=== PATIENT | male | born 1940 | race African-American/Black ===

== ENCOUNTER → 2016-05-07 | Outpatient (CLI) | payer OTHER ==
[~2016-05-07] MED LIST: AMLO2.5T PO; ASPI81TA28 PO; CITA10TA8 PO; FERR-24 PO; GABA-113 PO; INSUINJ3; LISI-729 PO; LORA0.5T12; METF500T PO; PRAV20TA PO; PRT/20 PO; TOLT2CAP PO; TRAV0.00 OPB; vit b12
== END | disposition home or self-care (01) ==
LOC: C.LABSPEC 17:02
PROVIDERS: ATTEND Urology
DX: R31.9 Hematuria, unspecified (principal); R82.8 Abnormal findings on cytological and histological examination of urine

== ENCOUNTER 2019-05-09 19:43 | Inpatient (IN) ==
[2019-05-10] MEDS ORDERED: ACETAMINOPHEN 325 MG TAB PO PRN (00:41)
[2019-05-10] MEDS ORDERED: FUROSEMIDE 40 MG TAB PO ONE (00:41)
[2019-05-10] MEDS ORDERED: ONDANSETRON INJ 2 MG/ML 2 ML VIAL IV PRN (00:41)
[2019-05-10] MEDS ORDERED: POLYETHYLENE (MIRALAX) 17 GM PACK PO PRN (00:41)
[2019-05-10] MEDS ORDERED: PHARMACY GLYCEMIC MGMT CONSULT PRN (00:47)
--- NOTE | 2019-05-10 00:55 | History & Physical Report ---
Date of Service May 10, 2019 Assessment & Plan (1) Syncope and collapse: Mr. Yousif Carter is a 78 year old man with complicated past medical history who presents after a syncopal episode at home Syncope Differential is broad including vasovagal, cardiac, neurologic, or medication induced Patient was just finishing going to bathroom and standing up and is on multiple blood pressure medications, we will check orthostatic vital signs Confused state afterwards with nonsensical speech and word slurring, could be reflective of a seizure, patient also with history of stroke, will order neurology consult, MRI brain, EEG and continue to monitor Patient with history of Atrial fibrillation, no known history of any other arrhythmias, will continue to watch on monitor in tele, will get echocardiogram in AM to further assess cardiac function will also trend troponin. Patient is asymptomatic currently will monitor closely and repeat ECG with any chest or shoulder pain Stroke like symptoms Word slurring and nonsensical speech never lasting more than a few minutes, possibly TIA's patient with a fib not anticoagulated and with history of poorly controlled diabetes, and with history of previous CVA is certainly at high risk CT head negative CTA showing moderate stenosis of right carotid Will get MRI now to evaluate further for any acute stroke Patient also with possible metastatic disease, want to rule out brain metastasis or seizures Will get neurology consult and order EEG as well Will continue atorvastatin and plavix, Will add asa 81 at this time which he has taken in past and stopped taking regularly Mediastinal Lymphadenopathy Patient with evidence of mediastinal lymphadenopathy suggestive of metastatic disease on CTA, Patient has not been to oncologist in many years and is not receiving active treatment. Port in place capable of receiving fluid but can't draw from it. It has been left in all this time because he is thought to be high risk for surgery to remove it. 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 Will get CT chest and Recommend getting records from [place] and [facility] to compare and clarify current disease status Poorly Controlled DMII Pharmacy consulted for glycemic management Average sugar 200's-300's holding metformin and trulicity Ambulatory Dysfunction Will get PT/OT evaluation Case management consulted for possible concern over returning home Glaucoma with Ischemic retinopathy Will let patient continue to use his home eye medications No acute changes, will follow up with opthalmologist on discharge CAD status post multiple AK's with RCA stents Will continue plavix, metoprolol, atorvastatin ASA 81, lisinopril and metoprolol Code Status: DNR/DNI F/E/N: Hearth healthy DMII diet, watched first few bites without DVT PPx: Lovenox Dispo: Admitted to telemetry for further evalutation with MRI, EEG, and neurology consult (2) Slurred speech: (3) Diabetes mellitus: (4) Glaucoma: (5) 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: (6) Squamous cell carcinoma: (7) Mediastinal lymphadenopathy: (8) Coronary artery disease: (9) Cerebrovascular disease: (10) Ambulatory dysfunction: History of Present Illness Chief Complaint: Syncopal Episode, confusion, slurred speech Primary Care Provider: Paulo Galeana Yousif Carter is a 78 year old gentleman with a past medical history significant for 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 He presents today as a direct transfer from [facility] due to a syncopal episode that occurred at home. He went to the bathroom and when standing up got immediately light headed felt like his vision was narrowing, he became diaphoretic and nauseated and then lost consciousness and almost fell to floor. He does not recall the incident very well but his daughter was present and His daughter caught him before he fell but she feels he did completely lose consciousness. When he awoke shortly thereafter he was very confused and had slurred speech and trouble making any sense. He was stood back up and brought to [facility]. At [facility] he had returned to his baseline other than some left shoulder pain which had been present for the last several days. He did not have any new deficits that family could tell, he always have some degree of lower extremity weakness, ambulatory dysfunction and neuropathy left worse than right. They believe some of that is due to his spinal stenosis, some to his diabetes, and some to his previous stroke. In the ED he was speaking to a doctor when he began to acutely slur his words and not make sense again, this lasted several minutes then he returned completely back to his baseline. This cycled several times over their time in the ED and patient was urgently taken for CT head and CTA. CT head showed no acute infarct and no bleeding, CTA showing moderate stenosis of right coronary artery and extensive soft tissue in lower neck and mediastinum concerning for metastatic disease. Patient had normal vitals, labwork significant for mild anemia with hemoglobin of about 12, Liver function normal, renal function normal and a negative troponin. Patient was transferred to [facility] for further evaluation with MRI and neurology consultation. At time of my meeting he is awake alert and oriented to person place time and situation. He is in his usual state of health and says his strength and speech are at his baseline. He has not had an episode of slurred speech since arriving. His three daughter's are present at bedside and agree with his assessment. He was able to walk from the stretcher into the bed without much difficulty but with some dragging of left foot. Review of systems negative for current chest/shoulder pain, presyncope/lightheadedness, leg swelling, fever, chills, abomdinal pain, nausea vomiting, cough, shortness of breath, lower extremity wounds, or acute vision changes. He has all of his medications in a bag at bedside, of note he is not taking any anticoagulation for his atrial fibrillation and he is not taking any daily aspirin therapy. Allergies Allergy/AdvReac Type Severity Reaction Status Date / Time No Known Allergies Allergy Unknown Verified 05/21/05 08:49 Home Medications Home Medications Medication Instructions Recorded Confirmed Type ASPIRIN (ASPIRIN EC) 1 tab PO qd #0 04/30/12 History Amlodipine (Norvasc) 2.5 mg PO DAILY #0 tab 04/30/12 History CITALOPRAM HYDROBROMIDE (CELEXA) 10 mg PO DAILY #0 tab 04/30/12 History FERROUS SULFATE (FE TABS) 325 mg PO DAILY #0 tab 04/30/12 History Gabapentin (Neurontin) 300 mg PO TID #0 cap 04/30/12 History INSULIN ISOPHANE (HUMAN) (HUMULIN #0 04/30/12 History N U-100 PEN) LORAZEPAM PRN #0 04/30/12 History Lisinopril (Prinivil) 5 mg PO QD@08 #0 tab 04/30/12 History METFORMIN HCL (GLUCOPHAGE) 500 mg PO DAILY #0 tab 04/30/12 History Pantoprazole (Protonix) 20 mg PO DAILY #30 tab 04/30/12 History Pravastatin (Pravachol ) 40 mg PO QD #0 tab 04/30/12 History TOLTERODINE TARTRATE (DETROL LA) 2 mg PO DAILY #0 cap 04/30/12 History vit b12 1xmonth #0 04/30/12 History TRAVOPROST (TRAVATAN Z) 1 drp OPB QD@08 #0 06/04/12 History Vyzulta 1 drp OPHTHALMIC (EYE) DAILY 05/10/19 History brimonidine 1 drp OPHTHALMIC (EYE) BID 05/10/19 05/10/19 History dorzolamide-timolol 1 drp OPHTHALMIC (EYE) BID 05/10/19 05/10/19 History netarsudil [Rhopressa] 1 drp OPHTHALMIC (EYE) DAILY 05/10/19 05/10/19 History Past Med/Surg History Social History Preferred Language: Turkish Orthopaedic Physician Assistant Required: No Beliefs That Will Affect Care: None Current Living Situation: Family Current Living Situation Comment: pt sister lives with him Feels Safe at Home: Yes Safety Concerns: Feels Safe At This Time Smoking Status: Never smoker Hx Alcohol Use: Yes Hx Substance Use: No Review of Systems Constitutional: no fever, no chills and no fatigue Eyes: No acute changes, though vision has been worsening for some time Ear, Nose, Mouth, Throat: no problem reported Respiratory: no cough, no dyspnea and no problem reported Cardiovascular: + lightheadedness (With syncope) and + syncope; no chest pain and no palpitations Gastrointestinal: no abdominal pain, no nausea, no vomiting and no constipation Genitourinary: no dysuria Musculoskeletal: Shoulder Pain Integumentary: no new lesions Neurologic: + falls, + localized weakness (Bilateral lower extremity left worse than right), + loss of sensation, + paresthesia, + syncope, + abnormal speech and + confusion Physical Exam Constitutional: well developed and well nourished; no acute distress and no altered mental status Port in place right upper chest Eyes: Pupils equal round and reactive to light, red injected sclera of left eye, ENMT: external ear and nose normal, oropharynx normal Neck: trachea midline, no thyromegaly Respiratory: normal respiratory effort, lungs clear to auscultation Cardiovascular: Rate/Rhythm: regular rate; + abnormal rhythm Heart Sounds: normal S1 and normal S2; no murmur and no cardiac rub Irregularly irregular rhythm, though patient was in sinus earlier Gastrointestinal (Abdomen): normal bowel sounds, soft, nontender, no hepatosplenomegaly Skin: no rashes, warm and dry Neurologic: CN II-XII assessed and normal, patient with symmetric lower extremity weakness, distal right foot inability to dorsiflex and plantar flex which patient tells me is a chronic issue. Sensation to light touch equal bilaterally Lymphatic: Lymphedema left arm Results & Data Vital Signs (Past 12 Hours) Vital Signs Temp Pulse Resp BP Pulse Ox 05/09/19 22:53 36.7 C 89 18 122/80 96 Supervising Physician Co-Signing Physician Notes Patient seen and examined, chart reviewed, case discussed with Dr. Calzada and I agree with his assessment and plan as documented above. Briefly, patient is a 78yo AA male with history of CAD/CVA/DM/AF/Neuropathy, also with Hairy Cell Leukemia, remote history of head/neck SCC. Patient had a syncopal event at home after using the toilet followed by confusion and slurred speech. He was seen at [facility], had CT head which was negative for bleed, CTA head and neck with moderate stenosis of right carotid artery, extensive soft tissue in lower neck concerning for malignancy. Patient had episodes of slurred speech at [facility]. He was transferred to [facility] at request of family for MRI and Neuro consultation. On exam he is afebrile, HD stable, NAD, resting comfortably in bed Skin - no rash HEENT- NC/AT, PERRL, EOMI, MMM, Neck supple Heart - +S1/S2, irregularly irregular, no m/r/g, port present in right chest wall, non-tender to palpation Lungs - CTA Abd - +BS, soft, NT/ND Ext- warm, well perfused, lymphedema of LUE Neuro - AA&O, speech intact, no facial droop, MS intact Labs and images reviewed. Outside records reviewed Assessment/Plan: 78yo AA male with syncopal event followed by confusion and slurred speech. ?Orthostatic event followed by hypotension/poor perfusion/TIA? ?Seizure? -Admit to medical floor with telemetry -MRI brain with and without contrast to look for CVA, ?metastatic disease. Patient has spinal stimulator in place - MRI is checking for compatability -Neuro checks -2D echo -Neurology consultation appreciated -Continue ASA, Plavix, Lipitor -Hold antihypertensive agents for now to allow for permissive HTN (Amlodipine, Lisinopril, Metoprolol) -Insulin for glycemic management -PT/OT/Speech evaluation appreciated -Consider EEG, will defer order to Neuro -Obtain records from outside facility re: thoracic mass. Patient had a CT Chest done in [place] on 12/07/18 and saw Pulmonary on 12/13/18. He does not currenlty follow with Oncology and receives most of his care at the [facility] -Remainder of plan as above Resident Activity Tracking Resident Involvement: Resident Care Provided Care Provided: Adult Hospital Medicine
[2019-05-10 01:19] LABS: Basophils # (auto) 0.03 K/uL (0-0.2); Basophils % (auto) 0.6 %; Eosinophils # (auto) 0.14 K/uL (0-0.5); Eosinophils % (auto) 2.6 %; Hematocrit (blood only) 37.5 % (42-52); Hemoglobin 12.6 g/dL (14.0-18.0); Immature Granulocytes # (auto) 0.01 K/uL (0.00-0.02); Immature Granulocytes % (auto) 0.2 %; Lymphocytes # (auto) 2.17 K/uL (1.2-3.4); Lymphocytes % (auto) 40.3 %; Mean Corpuscular Hemoglobin 28.6 pg (25-34); Mean Corpuscular Hgb Conc 33.6 g/dL (32-36); Mean Platelet Volume 10.5 fL (7.4-10.4); Monocytes % (auto) 7.4 %; Neutrophils # (auto) 2.63 K/uL (1.4-6.5); Neutrophils % (auto) 48.9 %; Platelet Count 164 K/uL (130-400); RDW Coefficient of Variation 15.6 % (11.5-14.5); RDW Standard Deviation 48.8 fL (36.4-46.3); Red Blood Count 4.41 M/uL (4.7-6.1); White Blood Count 5.38 K/uL (4.8-10.8)
[2019-05-10 01:38] LABS: Alanine Aminotransferase 13 U/L (12-78); Albumin Level 3.3 gm/dl (3.4-5.0); Aspartate Aminotransferase 9 U/L (15-37); BUN Creatinine Ratio 24.3 (10-20); Blood Urea Nitrogen 20 mg/dl (7-18); Calcium 8.8 mg/dl (8.5-10.1); Carbon Dioxide 27 mmol/L (21-32); Chloride 105 mmol/L (98-107); Creatinine Clr Calc Pharmacy 72.1 ml/min; Est GFR (African American) 98.4; Est GFR (Non-African American) 84.9; Glucose 114 mg/dl (70-99); Magnesium 1.7 mg/dl (1.8-2.4); Potassium 3.9 mmol/L (3.5-5.1); Sodium 139 mmol/L (136-145)
[2019-05-10 01:48] LABS: Albumin Globulin Ratio 0.9 (0.9-2); Alkaline Phosphatase 44 U/L (45-117); Bilirubin,Total 0.3 mg/dl (0.2-1); Globulin 3.9 gm/dl (2.5-4.0); Total Protein 7.2 gm/dl (6.4-8.2); Troponin I < 0.015 ng/ml (0-0.045)
[2019-05-10] MEDS ORDERED: GLUCAGON FOR INJ 1 MG VIAL SQ PRN (03:30)
[2019-05-10] MEDS ORDERED: CARBOHYDRATES FOR HYPOGLYCEMIA PO PRN (03:30)
[2019-05-10] MEDS ORDERED: DEXTROSE 50% 50 ML SYRINGE IV PRN (03:30)
[2019-05-10] MEDS ORDERED: GLUCOSE 10 TABS/TUBE PO PRN (03:30)
[2019-05-10] MEDS ORDERED: GLUCOSE 40% GEL 15 GM TUBE PO PRN (03:30)
--- NOTE | 2019-05-10 05:00 | Billing Data ---
Date of Service May 10, 2019 Coding Level of Care Code 25441 Initial Inpt Care Lvl 3
[2019-05-10] MEDS ORDERED: lisinopriL 10 MG TAB PO SCH (08:00)
--- NOTE | 2019-05-10 08:22 | CT Scan Report ---
CT chest wo con CLINICAL HISTORY: 78 years-old Male presenting with Concern for metastatic disease, history of head a nd neck cancer. TECHNIQUE: Multidetector CT imaging of the chest was performed without the use of intravenous contras t. IV contrast: None. One or more dose lowering techniques were used consistent with the principles o f ALARA (as low as reasonably achievable), including automatic exposure control, mA or kV adjustment to individual patient size, and/or use of iterative reconstruction. COMPARISON: PET/CT from 06/01/2012. CT DOSE (mGy.cm): The estimated cumulative dose is 408.38 mGy.cm. FINDINGS: Concrete Buildings As[employer]er topogram: Unremarkable. Soft tissues: Postsurgical changes of prior left neck dissection. Right internal jugular Mediport ter minates in the brachiocephalic confluence. Mild diffuse body wall edema. Hyperdensities in the left s upraclavicular fossa may represent calcification potentially as a response to radiation or surgery. T he appearance is not suggestive of retained surgical material. Enlargement of the right thyroid lobe with an exophytic nodule along the right lateral aspect of the esophagus. Mild infiltration of the morris perior mediastinal fat. Numerous prominent mediastinal lymph nodes measuring up to 10 mm in short axi s in the pretracheal/right paratracheal region. Evaluation of the zachary limited in the absence of intr avenous contrast. Atherosclerosis of the aorta. Normal heart size. Coronary artery and aortic valve c alcification. Moderate simple appearing right pleural effusion. Cholecystectomy clips. Excreted contr ast in the urinary collecting systems from recent CTA. Lungs and airways: No pneumothorax. Central airways patent. Pulmonary arteries are not significantly enlarged relative to adjacent bronchi. No interlobular septal thickening. Groundglass nodule in the l eft apex measuring approximately 13 mm (series 5 image 115). Adjacent cystic or emphysematous change noted. Pleural parenchymal scarring at the apices bilaterally, possibly post radiation change. Passiv e atelectasis in the right lower lobe with dependent peribronchovascular groundglass and nodular opac ities. Solid subpleural 4 mm nodule in the superior segment of the left lower lobe, unchanged. Musculoskeletal: Degenerative changes of the spine. Flowing anterior osteophytosis may suggest diffus e idiopathic skeletal hyperostosis. Anterior cervical fusion hardware. No destructive osseous lesion. Offset of the left sternoclavicular joint with posterior displacement of the left clavicular head. T his is likely chronic. There is also offset of the sternomanubrial joint. Chronic appearing anterior left rib fractures. Partially visualized spinal catheter or lead terminating in the mid thoracic kristopher on. IMPRESSION: 1. Nonspecific prominent mediastinal lymph nodes measuring up to 10 mm in short axis. Attention on f ollow-up. 2. Allowing for noncontrast technique, no convincing evidence of intrathoracic metastatic disease. 3. Moderate right pleural effusion, grossly simple appearing. Pleural fluid sampling could be consid ered to ensure the absence of pleural metastatic disease. 4. Associated right basilar passive atelectasis. Peribronchovascular groundglass and nodular depende nt right lower lobe infiltrate may relate to atelectasis or superimposed aspiration. Metastatic disea se considered unlikely. 5. Postsurgical changes of left neck dissection and postradiation change. 6. 13 mm groundglass nodule at the left apex. This requires follow-up as this may represent an adeno matous lesion (atypical adenomatous hyperplasia to adenocarcinoma in situ spectrum). ACT 112: Negative or not required by law. Electronically signed by: Feliciano Coats M.D. 05/10/2019 8:21 AM
[2019-05-10] MEDS: INSULIN ASPART 100 UNITS/ML 3 ML PEN SC SCH ×4 (08:30→21:40)
[2019-05-10] MEDS: ASPIRIN 81 MG ECTAB PO SCH (08:31)
[2019-05-10] MEDS: GABAPENTIN 600 MG TAB PO SCH ×3 (08:31→21:40)
[2019-05-10] MEDS: ATORVASTATIN 40 MG TAB PO SCH (08:31)
[2019-05-10] MEDS: POTASSIUM CHLORIDE 20 MEQ TABCR PO SCH (08:32)
[2019-05-10] MEDS: PANTOprazole 40 MG TAB PO SCH (08:32)
[2019-05-10 08:35] LABS: Estimated Average Glucose 140 mg/dl; Hemoglobin A1C 6.5 % (4.5-5.6)
[2019-05-10] MEDS ORDERED: METOPROLOL SUCC 25MG EXT REL TAB PO SCH (09:00)
[2019-05-10] MEDS ORDERED: AMLODIPINE BESYLATE 5 MG TAB PO SCH (09:00)
[2019-05-10] MEDS ORDERED: CLOPIDOGREL BISULFATE 75 MG TAB PO SCH (09:00)
[2019-05-10] MEDS ORDERED: ENOXAPARIN INJ 40 MG/0.4 ML SYR SQ SCH (09:00)
--- NOTE | 2019-05-10 12:13 | Medical Student Progress Note ---
Date of Service May 10, 2019 Assessment & Plan Treatment Plan Mr. Carter is a 78-year-old man with a complex medical history including DMII, diabetic neuropathy, atrial fibrillation not on anticoagulation, multiple MIs with stents, SCC head and neck cancer s/p radical lymph node dissection, ischemic stroke, and ischemic retinopathy who presents following an episode of loss of consciousness. Syncope and slurred speech: Possible etiologies include a stroke/TIA, syncopal episode, or seizure activity. CT scan ruled out an acute bleed at the outside hospital and a CTA was performed that showed moderate stenosis of the right carotid artery. Has multiple risk factors for CVA including atrial fibrillation, DMII, and hypertension, and demonstrated aphasia following the incident, the patient states that he lost vision in both eyes at the time of the incident which would be inconsistent with the traditional presentation of amaurosis fugax or a stroke. Was standing up and just finished urinating when the episode occurred. He was confused after the incident and states his daughter noticed his limbs jerking during the attack. Likely vasovagal syncopal event. Will get MRI head in order to rule out stroke or mass as cause of seizure. - MRI head pending. - No arrhythmia on the monitor. - Avoid aggressive blood pressure control. Mediastinal Lymphadenopathy: Raises concern for recurrence of head and neck can cer. Per family, nodule in left apex has been followed by outside provider and thus does not merit further work-up. r/o malignant origin. - Consult pulmonology for pleurocentesis. - Consult heme/onc for possible cancer recurrence. Diabetes: Blood glucose is trending down today. - Pharmacy will continue to manage insulin. Hypertension and CAD in the Setting of multiple MIs: Blood pressure was slightly high overnight (140s/80s). Permissive hypertension in the setting of possible CVA. - Continue clopidogrel, atorvastatin, and aspirin. - Hold metoprolol and lisinopril. Atrial Fibrillation: Patient has not been taking medications to manage this condition for unclear reasons. Telemetry showed sinus rhythm with heart rate in the 70s overnight and sinus bradycardia this morning with heart rate in the 40s and thus was not in a-fib at this time. Unmanaged atrial fibrillation is a risk factor for clot formation and possible stroke. - Encourage patient to follow up with PCP/Cardiology as an outpatient. Dispo: Floor Code Status: Full Code DVT ppx: Lovenox 40mg, SQ, daily Diet: Heart Healthy, Diabetic diet Supervising Attestation Medical Student Supervision Note: I independently interviewed and examined the patient and verified the corrales history and physical, reviewed labs and image studies, discussed the case with Marcela Rockwell and the resident Dr. Pizano and agree with the findings and care plan. Subjective Mr. Carter did well overnight. His speech is back to baseline per his report. He states that he had some minor difficulties moving his extremities yesterday after his syncopal episode but that has resolved. He stated that when he got up to walk with the physical therapist this morning he felt lightheaded when he stood up and a 'little woozy' when taking his first steps but was able to ambulate well after that. The patient's primary concern at this point is the increasing pain in his left upper arm. He states that he has had lymphedema in this arm for many years and it is 'always sore' but for the past three days the pain has been increased in intensity and burning in nature. He reports taking ibuprofen for this pain yesterday but that the pain was not alleviated. Review of Systems Review of Systems: All systems reviewed & are unremarkable except as noted in HPI & below Constitutional: no fever, no sweats and no malaise Eyes: + worsening vision; no diplopia Patient notes some progressive visual changes over the past few months due to cataracts. Ear, Nose, Mouth, Throat: no problem reported Respiratory: no cough and no dyspnea Cardiovascular: + lightheadedness; no chest pain, no syncope, no edema and no calf pain Gastrointestinal: no problem reported Genitourinary: no problem reported Musculoskeletal: as per Subjective / HPI Integumentary: no problem reported Neurologic: + paresthesia (lower extremities, worse at night, due to diabetic neuropathy ) and + confusion; no unsteadiness, no abnormal movements, no syncope and no abnormal speech Psychiatric: no problem reported Endocrine: no problem reported Hematologic / Lymphatic: + lymphadenopathy Allergy / Immunological: no problem reported Physical Exam Physical Exam: General Appearance: Patient is resting comfortably in bed on exam. He is friendly, cooperative, and in no acute distress. HEENT: Eyes react and accommodate appropriately to light. Sclera of left eye is notably erythematous. Ears, nose, and throat not examined. Respiratory: Lungs clear bilaterally to auscultation. No increased work of breathing, dyspnea, rhonchi, or wheezes. Cardiovascular: Normal rate and rhythm. S1 and S2 appreciated. No rubs, murmurs, or gallops. No lower extremity edema appreciated. Gastrointestinal: Normoactive bowel sounds. No tenderness to palpation or organomegaly. MSK: Diffuse muscle atrophy appreciated. Skin: Warm, pink, and dry. Neurological: 4/5 strength in all extremities. Sensation grossly intact. CN II- XII intact. No dysmetria or dysdiadochokinesia. No aphasia or dysarthria appreciated. Psychiatric: Oriented to person, place, and time. Thought process logical and organized. Affect appropriate. Genitourinary: Not examined. Lymphatic: Lymphedema in left upper extremity appreciated. No cervical, submandibular, auricular, or supraclavicular lymphadenopathy appreciated on exam. Results & Data ([facility]) Vital Signs (Past 12 Hours) Vital Signs Temp Pulse Pulse Resp BP Pulse Ox 05/10/19 11:06 36.3 C L 63 20 98/46 L 98 05/10/19 08:00 92 H 05/10/19 07:42 37.2 C 50 L 20 147/78 H 97 05/10/19 02:37 36.5 C 73 16 144/61 H 98 BUN 20 Glucose 116 Mg 1.[address] Chest: Mediastinal lymph nodes, no intrathoracic metastases, R pleural effusion, and a nodule with a groundglass appearance in the left apex.
--- NOTE | 2019-05-10 13:19 | Neurology Consultation ---
Date of Consultation May 10, 2019 Assessment & Plan (1) Diabetes mellitus: (2) Syncope and collapse: Yousif Carter is a 78 yo man w/ PMH of hairy cell leukemia, lumbar stenosis with neurogenic claudication s/p spinal stimulator placement by Dr Esquivel at [facility] in 2014, uncontrolled diabetes with neuropathy, BPH, BPPV, HLD, HTN, GERD, h/o TIA, CAD s/p stent in 2004, baseline gait abnormality, history of radical dissection of left-sided neck cancer, known small vessel ischemic disease and known mediastinal lymphadenopathy (f/w [facility] pulmonology) who presents to [facility] as a transfer from [facility] for evaluation of syncopal event followed by confusion and dysarthria. # Syncopal event: he has a long history of lightheadedness likely 2/2 orthostasis vs autonomic dysfunction 2/2 diabetes. 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 They were not sure if he has had tilt table testing in the past. - orthostatic vitals (currently hypotensive) - would recommend tilt table testing if not already completed (can see if [facility] has records of this) - would consider 30 day event monitor or zio patch on discharge to determine if arrhythmia is contributing to symptoms and refer to cardiology as needed - discussed with pt and his daughter trying compression stockings for the orthostatic component that he described ([facility] # Recurrent dysarthria/confusion: unclear if this was 2/2 hypoperfusion from arrhythmia or hypoglycemia. Dysarthria with LLE weakness and no other neurological symptoms is difficult to localize to a single neurological lesion and likely represents global hypoperfusion - would continue to monitor him for arrhythmia as above and maintain MAP > 65 - would also consider sending B12 and UA to r/o infection Thank you for this interesting consult. Plan of care discussed with primary team. Please call or text with questions. (3) Slurred speech: (4) Mediastinal lymphadenopathy: (5) Ambulatory dysfunction: History of Present Illness Attending Physician: Dilma Vyas MD History of Present Illness Yousif Carter is a 78 yo man w/ PMH of hairy cell leukemia, lumbar stenosis with neurogenic claudication s/p spinal stimulator placement by Dr Esquivel at [facility] in 2014, uncontrolled diabetes with neuropathy, BPH, BPPV, HLD, HTN, GERD, h/o TIA, CAD s/p stent in 2004, baseline gait abnormality, history of radical dissection of left-sided neck cancer, known small vessel ischemic disease and known mediastinal lymphadenopathy (f/w [facility] pulmonology) who presents to [facility] as a transfer from [facility] for evaluation of syncopal event followed by confusion and dysarthria. He was in his normal state of health until May 09, 2019 he was in the bathroom and stood up upon which he immediately got lightheaded. He had tunnel vision, diaphoresis and nausea followed by a syncopal event where his daughter caught him. There was loss of consciousness briefly when he woke up confused with slurred speech. He was taken to [facility] where he had return to baseline other than some chronic left shoulder pain. While the ED doc was talking with him, he began to have dysarthria again and nonsensical speech for several minutes before returning back to his baseline. He had a CT head that showed no hemorrhage. CTA head and neck showed moderate stenosis of the right ICA but no other reported LVO, high grade stenosis or aneurysm noted. Independent review of MRI brain from 05/10/2019 shows no acute infarct, extensive small vessel ischemic disease, thin corpus callosum and generalized atrophy with no enhancing lesions noted; there is no mesial temporal sclerosis noted either. Labs notable for WBC 5.3, hemoglobin 12.6 (normocytic anemia), platelets 164, creatinine 0.83 otherwise unremarkable BMP, A1c 6.5, calcium within normal, mag mildly low at 1.7, LFTs unremarkable, troponin negative, TSH within normal. On examination today, he reports that he is back to baseline and that he has baseline gait dysfunction, chronic lightheadedness on standing and intermittent episodes of vertigo. His usual episodes of lightheadedness when her when he goes from sitting to standing and are associated with tunnel vision and clammy hands. The episode that occurred yesterday involved tunnel vision, diaphoresis, nausea and left sided chest pain that radiated down his left arm. Daughter reports that he appeared confused when she found him in the bathroom and she caught him before he fell to the ground. There was a brief period of tonic stiffening of bi lateral upper extremities when his eyes looked glazed over. She took his vitals when they got out to the living room which were notable for blood glucose 88, HR in the 170s; she did not remember the BP at that time. He continued to have eyes open and be confused until EMS arrived. While at the outside ED, she reports that he had recurrent episodes of transient dysarthria. He remembers this and reports that he knew what he wanted to say but could not get the words out. Believes that he also felt LLE weakness during these events but denied any facial droop, vision changes, other weakness or numbness/tingling during speech difficulties. Denies any recent illnesses, fevers, chills, medication changes or injury. Uses a walker at baseline given multiple back surgeries, right foot drop, severe neuropathy up to mid-thighs and prior neck issues. Thinks that he may have had tilt table testing through neurology at [facility] but is not sure (no results available). Reviewed outside records from [facility]. Patient last saw pulmonology for his known mediastinal lymphadenopathy in January 2019. At that time CT of the chest was stable to prior with a repeat CT chest planned for November 2019. He also had a known left lung nodule who was either benign or very slowly growing as it was stable on repeat CT chest. Last note in outpatient says that his history of throat cancer was stable and the plan to continue conservative management. Findings on the CT chest at that time showed a stable 3 mm left lower lobe nodule unchanged since 2012 likely benign, by apical scarring, right IJ port catheter tip in the superior vena cava, stable position of spinal neurostimulator, mild enlargement right paratracheal lymph nodes unchanged from December 2017 CT scan, aortic atherosclerosis, coronary artery calcification, small hiatal hernia, similar right exophytic thyroid nodule measuring 1.6 x 1.5 cm, postsurgical changes in the left neck soft tissues, partially visualized anterior cervical fusion hardware, cervical thoracic laminectomies, chronic sternal fracture deformity, degenerative changes of the spine. He was admitted to [facility] in June 2018 with similar dizziness and ligh theadedness. He was seen by neurology at that time who compared imaging and felt that his ongoing chronic dizziness was likely secondary to possible BPPV. He was referred to the outpatient balance center for additional work-up but it appears that he did not actually go to this work-up since then. Per the neurology note at that time, he described a several year history of vertigo that was triggered by changes in head position lasting only seconds for which he would take medication at home with relief. He also had a longstanding history of dizziness described as lightheadedness. He was noted to have significant small vessel disease on MRI brain and recommended to start aspirin 81 mg daily, atorvastatin 80 mg daily and monitoring blood pressure with goal less than 130/80. Allergies Allergy/AdvReac Type Severity Reaction Status Date / Time No Known Allergies Allergy Unknown Verified 05/21/05 08:49 Home Medications Home Medications Medication Instructions Recorded Confirmed Type ASPIRIN (ASPIRIN EC) 1 tab PO qd #0 04/30/12 History Amlodipine (Norvasc) 2.5 mg PO DAILY #0 tab 04/30/12 History CITALOPRAM HYDROBROMIDE (CELEXA) 10 mg PO DAILY #0 tab 04/30/12 History FERROUS SULFATE (FE TABS) 325 mg PO DAILY #0 tab 04/30/12 History Gabapentin (Neurontin) 300 mg PO TID #0 cap 04/30/12 History INSULIN ISOPHANE (HUMAN) (HUMULIN #0 04/30/12 History N U-100 PEN) LORAZEPAM PRN #0 04/30/12 History Lisinopril (Prinivil) 5 mg PO QD@08 #0 tab 04/30/12 History METFORMIN HCL (GLUCOPHAGE) 500 mg PO DAILY #0 tab 04/30/12 History Pantoprazole (Protonix) 20 mg PO DAILY #30 tab 04/30/12 History Pravastatin (Pravachol ) 40 mg PO QD #0 tab 04/30/12 History TOLTERODINE TARTRATE (DETROL LA) 2 mg PO DAILY #0 cap 04/30/12 History vit b12 1xmonth #0 04/30/12 History TRAVOPROST (TRAVATAN Z) 1 drp OPB QD@08 #0 06/04/12 History Vyzulta 1 drp OPHTHALMIC (EYE) DAILY 05/10/19 History brimonidine 1 drp OPHTHALMIC (EYE) BID 05/10/19 05/10/19 History dorzolamide-timolol 1 drp OPHTHALMIC (EYE) BID 05/10/19 05/10/19 History netarsudil [Rhopressa] 1 drp OPHTHALMIC (EYE) DAILY 05/10/19 05/10/19 History Patient History Social History Preferred Language: Nauruan Communication Ability: Effective Freight Manager Required: No Beliefs That Will Affect Care: None Current Living Situation: Family Current Living Situation Comment: pt sister lives with him Feels Safe at Home: Yes Safety Concerns: Feels Safe At This Time Smoking Status: Never smoker Hx Alcohol Use: Yes Hx Substance Use: No Review of Systems Review of Systems: 14 point review of systems completed and negative except as in HPI. Physical Exam Physical Exam: General Exam: GEN: NAD, sitting in bed. HEENT: No conjunctival injection, no rhinorrhea. CV: Bradycardic, no peripheral edema PULM: Nonlabored respirations on room air. Neuro Exam: MS: Awake and Alert. Oriented to person, place, and month/year but not date. Speech fluent and appropriate without dysarthria or paraphasic errors. Language intact including naming, comprehension, repetition. Cognition and memory grossly intact. Attention intact. No neglect. CN: Visual wilson full in the right eye, appears to have diminished vision overall in the left eye. No extinction to double simultaneous stimuli. Unable to visualize fundi on fundoscopic exam. PERRLA OU. EOMI without nystagmus. Facial sensation intact to LT. Facial muscles full and symmetric. Hearing intact to conversation. Uvula midline with symmetric palatal elevation. Shoulder shrug normal. Tongue midline. MOTOR: Normal bulk and tone. No pronator drift. BUE strength 5/5 at deltoids, biceps, triceps, wrist flexors and extensors, and hand grasp bilaterally. BLE strength 5/5 at iliopsoas, hamstrings, quadriceps, 2/5 R tibialis anterior, 4-/5 L tibialis anterior and 5-/5 gastrocnemius bilaterally. REFLEXES: 1+ at biceps, triceps, brachioradialis, absent patella and absent Achilles bilaterally. Toes mute bilaterally. SENSORY: Intact to LT without extinction to double simultaneous stimuli. Vibration and temperature intact in BUEs, diminished up to knees in BLEs. COORDINATION: No dysmetria or ataxia on [id number] bilaterally. Normal Gillian bilaterally. GAIT: Deferred Results & Data Vital Signs (Past 12 Hours) Vital Signs Temp Pulse Pulse Resp BP Pulse Ox 05/10/19 11:06 36.3 C L 63 20 98/46 L 98 05/10/19 08:00 92 H 05/10/19 07:42 37.2 C 50 L 20 147/78 H 97 05/10/19 02:37 36.5 C 73 16 144/61 H 98 PG Care Time/CCT Total # of Minutes Spent Total Time Spent with Patient: Total time spent is greater than 50% in coordination of care (as documented) at patient's floor/unit and/or counseling patient: Coding Level of Care Code 97629 Initial Inpt Care Lvl 3 Diagnoses Diabetes mellitus E11.9 Syncope and collapse R55 Slurred speech R47.81 Mediastinal lymphadenopathy R59.0 Ambulatory dysfunction R26.2
[2019-05-10] MEDS ORDERED: GADOBUTROL 30ML VIAL IV PRN (13:24)
--- NOTE | 2019-05-10 13:34 | Magnetic Resonance Report ---
MR brain seizure wo/w con CLINICAL HISTORY: seizure stroke COMPARISON STUDY: CT brain same date TECHNIQUE: Utilizing a 1.5 Yamile magnet and dedicated coil, multiplanar, multiecho imaging of the br ain was performed pre and postcontrast administration. IV administration of 8.5 mL of Gadavist contr ast was uneventful. Thin cut coronal T2 imaging was performed according to seizure protocol. FINDINGS: Diffusion images show no evidence for an acute ischemic process. There are findings of multiple foci of increased signal within the periventricular deep white matter regions. These are also seen in the pontine medullary region and are consistent with extensive chroni c small vessel change. The ventricular system is midline. There are findings of generalized atrophy involving the cerebellar as well as cerebral hemispheres. Postcontrast images show no evidence for enhancing lesion. IMPRESSION: 1. Extensive cerebellar as well as cerebral atrophy. 2. Extensive chronic small vessel change in the periventricular, deep white matter regions, as well a s pontine medullary region. 3. No evidence for abnormal postcontrast enhancement. 4. No evidence for an acute ischemic process. IMPRESSION: Normal study. ACT 112: Negative or not required by law. The above report was generated using voice recognition software. It may contain grammatical, syntax or spelling errors. Electronically signed by: Keo Boone M.D. 05/10/2019 1:32 PM
--- NOTE | 2019-05-10 14:11 | XCELERA ---
[id number] \\[email or web address]\[email or web address]\[id number]
--- NOTE | 2019-05-10 14:57 | Pharmacy Report ---
Glycemic Control Consultation - Date of Service May 10, 2019 - Scope Scope: Glycemic Pharmacist consulted for glycemic control and to write orders per [facility] inpatient glycemic control protocol. - Objective Weight: 81 kg Accluis albertoecks BSG (last 24hrs): 05/10/19 05/10/19 05/10/19 00:28 00:59 07:20 Glucose 114 H POC Glucose 124 H 116 H 05/10/19 11:38 Glucose POC Glucose 142 H Laboratory Data (last 24hrs): 05/10/19 00:59 Potassium 3.9 Carbon Dioxide 27 Anion Gap 6.0 Creatinine 0.83 Est Cr Clr Drug Dosing 72.1 HbA1c: Hemoglobin A1c 6.5 % (4.5-5.6) H 05/10/19 07:57 - Recent Pertinent Medications Outpatient Anti-diabetic Regimen: * Per patient's daughter: * Metformin 500 mg daily * Lantus 35 units SC qAM * Trulicity weekly on Mondays * A1c = 6.5 % (05/10/19) - Assessment & Plan Assessment & Plan: ASSESSMENT: * Patient admitted on evening of 05/08 following syncopal episode at home * BSGs so far ranging 114-142 mg/dL * Will order one-time Lantus today (weight-based stress of 2 full dose of 28 units) - approximately 20% reduction in home Lantus dose PLAN FOR INPATIENT GLYCEMIC CONTROL: * Holding outpatient oral diabetes medications * Basal insulin * Lantus 28 units x 1 - will reassess in AM * Bolus insulin * NovoLog per scale ACHS or Q6hrs while NPO * Goal Range: Low 110 mg/dL - High 140 mg/dL * Correction Factor: 35 mg/dL/unit * Nutritional / Prandial insulin per carb ratio of 1 unit per 12 grams CHO consumed * Will order one overnight check to ensure safety * Please note that the plan above was derived based on current level of insulin resistance and hospital stress. These recommendations are appropriate for inpatient admission only. Plan of care upon discharge will need to be reassessed to avoid potential outpatient hypo/hyperglycemia. Thank you.
[2019-05-10] MEDS ORDERED: INSULIN GLARGINE SOLOSTAR 100 UNITS/ML 3 ML PEN SC ONE (15:00)
[2019-05-10] MEDS ORDERED: OR MISCELLANEOUS MED XX ONE (15:46)
--- NOTE | 2019-05-10 17:18 | Pulmonary Consultation ---
Date of Consultation May 10, 2019 Assessment & Plan (1) Pleural effusion, right: Patient with evidence of a right-sided pleural effusion. Will obtain records from [facility] and review prior CT of his chest to evaluate for evidence of effusion at that time. He does have grade 3 diastolic dysfunction which is possibly contributing to the effusion. He does have a history of malignancy and a lung nodule in his left upper lobe with some associated mediastinal lymphadenopathy. It appears that he is followed by pulmonary medicine in [facility]. We would certainly be happy to see him as well if need be. Ideally, I would recommend that the patient be off Plavix for 5 days prior to any pleural procedure that is not an emergent procedure. I do not think this effusion represents an empyema or infection. Recommend holding Plavix for 5 days and repeating chest x-ray at that time. We can see him in the clinic. (2) Diastolic heart failure: (3) Coronary artery disease: (4) Lung nodule: History of Present Illness Reason for Consultation: Pleural effusion Requesting Physician: Dr. Vyas Attending Physician: Dilma Vyas MD History of Present Illness 78-year-old -Swedish male with a past medical history of hairy cell leukemia, lumbar stenosis, diabetes with neuropathy, BPH, hyperlipidemia, hypertension, GERD, coronary artery disease with stenting 2004, radical dissection of the left neck for head and neck cancer and mediastinal lymphadenopathy and follows with [facility] pulmonology presents to the hospital from [facility] for evaluation of syncope. Pulmonary is consulted for evaluation of a right-sided pleural effusion. Patient describes he had a syncopal event where his daughter caught him in his house on Friday. There was concern for stroke and so a CTA of the head and neck was ordered with no evidence of acute process. MRI of the brain did not show any acute infarct but did show extensive small vessel ischemic disease. He denies any significant shortness of breath or chest pain. He does have occasional left shoulder pain. He did have some nausea yesterday but this has resolved. He notes a chronic cough particularly in the morning. He has chronic known mediastinal lymphadenopathy that is followed by pulmonary in [facility]. Patient apparently had a CT of his chest in January 2019 at [facility] and has a history of a left lung nodule. I am unable to review the records myself today as I do not have access to this. Allergies Allergy/AdvReac Type Severity Reaction Status Date / Time No Known Allergies Allergy Unknown Verified 05/21/05 08:49 Home Medications Home Medications Medication Instructions Recorded Confirmed Type ASPIRIN (ASPIRIN EC) 1 tab PO qd #0 04/30/12 History Amlodipine (Norvasc) 2.5 mg PO DAILY #0 tab 04/30/12 History CITALOPRAM HYDROBROMIDE (CELEXA) 10 mg PO DAILY #0 tab 04/30/12 History FERROUS SULFATE (FE TABS) 325 mg PO DAILY #0 tab 04/30/12 History Gabapentin (Neurontin) 300 mg PO TID #0 cap 04/30/12 History INSULIN ISOPHANE (HUMAN) (HUMULIN #0 04/30/12 History N U-100 PEN) LORAZEPAM PRN #0 04/30/12 History Lisinopril (Prinivil) 5 mg PO QD@08 #0 tab 04/30/12 History METFORMIN HCL (GLUCOPHAGE) 500 mg PO DAILY #0 tab 04/30/12 History Pantoprazole (Protonix) 20 mg PO DAILY #30 tab 04/30/12 History Pravastatin (Pravachol ) 40 mg PO QD #0 tab 04/30/12 History TOLTERODINE TARTRATE (DETROL LA) 2 mg PO DAILY #0 cap 04/30/12 History vit b12 1xmonth #0 04/30/12 History TRAVOPROST (TRAVATAN Z) 1 drp OPB QD@08 #0 06/04/12 History Vyzulta 1 drp OPHTHALMIC (EYE) DAILY 05/10/19 History brimonidine 1 drp OPHTHALMIC (EYE) BID 05/10/19 05/10/19 History dorzolamide-timolol 1 drp OPHTHALMIC (EYE) BID 05/10/19 05/10/19 History netarsudil [Rhopressa] 1 drp OPHTHALMIC (EYE) DAILY 05/10/19 05/10/19 History Patient History Social History Preferred Language: East Timorese Communication Ability: Effective Line Mover Required: No Beliefs That Will Affect Care: None Current Living Situation: Family Current Living Situation Comment: pt sister lives with him Feels Safe at Home: Yes Safety Concerns: Feels Safe At This Time Smoking Status: Never smoker Hx Alcohol Use: Yes Hx Substance Use: No Review of Systems Review of Systems: All systems reviewed & are unremarkable except as noted in HPI & below Physical Exam Constitutional: WD/WN, vitals as above well developed Patient is sitting up in a chair in no apparent distress. He is eating food. He appears in good spirits. Eyes: PERRL, conjunctivae normal, anicteric sclerae ENMT: external ear and nose normal, oropharynx normal Neck: Large scar on the left neck from prior surgery Respiratory: normal respiratory effort, lungs clear to auscultation Cardiovascular: RRR, no murmur, no edema Gastrointestinal (Abdomen): normal bowel sounds, soft, nontender, no hepatosplenomegaly Musculoskeletal: no cyanosis or clubbing, extremities motor strength 5/5 Skin: no rashes, warm and dry Neurologic: PERRL, EOMI, accommodation nl, no face palsy, no dysarthria Psychiatric: A+Ox3, euthymic affect Results & Data ([facility]) Vital Signs (Past 12 Hours) Vital Signs Temp Pulse Pulse Resp BP Pulse Ox 05/10/19 15:16 98.1 F 52 L 19 166/79 H 98 05/10/19 11:06 97.3 F L 63 20 98/46 L 98 05/10/19 08:00 92 H 05/10/19 07:42 99.0 F 50 L 20 147/78 H 97 I personally reviewed the patient's CT scan of his chest which demonstrates prominent mediastinal lymphadenopathy up to 10 mm in short axis. There is evidence of a small to moderate right sized pleural effusion. There is also a 13 mm groundglass nodule at the left apex. Echocardiogram performed on 05/10/2019 demonstrates grade 3 diastolic dysfunction consistent with markedly increased left atrial pressure. Normal EF with 55 to 60% PG Care Time/CCT Total # of Minutes Spent Total Time Spent with Patient: Total time spent is greater than 50% in coordination of care (as documented) at patient's floor/unit and/or counseling patient: Coding Level of Care Code 90434 Initial Inpt Care Lvl 3 Diagnoses Pleural effusion, right J90 Diastolic heart failure I50.30 Coronary artery disease I25.10 Lung nodule R91.1
[2019-05-10 19:20] LABS: Appearance Urine Turbid (Clear); Bacteria Urine Automated Negative (Negative); Bilirubin Urine Negative (Negative); Blood Urine 1+ (Negative); Color Urine Yellow; Epithelial Cell Urine Auto >30 /lpf (0-5); Glucose Urine UA Negative (Negative); Ketones Urine Negative (Negative); Leukocyte Esterase Urine 3+ (Negative); Nitrite Urine Negative (Negative); Protein Urine Negative (Negative); RBC Urine Automated 0-4 /hpf (0-4); Specific Gravity Urine 1.021 (1.000-1.030); Urobilinogen Urine Negative (Negative); WBC Urine Automated >30 /hpf (0-5); pH Urine 5.5 (4.5-7.5)
[2019-05-10] MEDS: POM - DORZOLAMIDE/TIMOLOL 22.3/6.8MG/ML 10 ML BTL OP SCH (21:39)
[2019-05-10] MEDS: BRIMONIDINE TARTRATE 0.2% OP SCH (21:39)
[2019-05-11] MEDS ORDERED: INSULIN ASPART 100 UNITS/ML 3 ML PEN SC SCH (02:00)
[2019-05-11] MEDS: HEPARIN 100 UNIT/ML 5ML FLUSH FLUSH PRN ×2 (07:43→12:24)
[2019-05-11] MEDS: GABAPENTIN 600 MG TAB PO SCH (08:57)
[2019-05-11] MEDS: PANTOprazole 40 MG TAB PO SCH (08:58)
[2019-05-11] MEDS: ASPIRIN 81 MG ECTAB PO SCH (08:58)
[2019-05-11] MEDS: BRIMONIDINE TARTRATE 0.2% OP SCH (08:58)
[2019-05-11] MEDS: POM - DORZOLAMIDE/TIMOLOL 22.3/6.8MG/ML 10 ML BTL OP SCH (08:58)
[2019-05-11] MEDS: ATORVASTATIN 40 MG TAB PO SCH (08:58)
[2019-05-11] MEDS: POTASSIUM CHLORIDE 20 MEQ TABCR PO SCH (08:58)
[2019-05-11] MEDS: INSULIN ASPART 100 UNITS/ML 3 ML PEN SC SCH ×2 (09:00→12:24)
[2019-05-11] MEDS ORDERED: VYZULTA OP SCH (09:00)
[2019-05-11] MEDS ORDERED: RHOPRESSA OP SCH (09:00)
[2019-05-11] MEDS ORDERED: CLOPIDOGREL BISULFATE 75 MG TAB PO SCH (09:00)
--- NOTE | 2019-05-11 10:44 | Pharmacy Report ---
Pharmacy Glycemic Short Note 2 - Date of Service May 11, 2019 - Glycemic Short BSG Results (Last 24 hours): 05/10/19 05/10/19 05/10/19 11:38 16:20 19:50 POC Glucose 142 H 164 H 97 05/11/19 05/11/19 02:13 08:03 POC Glucose 99 91 ASSESSMENT: 05/10: * Patient received total of 41 units of insulin yesterday, of which 28 were basal insulin * Fasting BSG on lower end of range at 91 mg/dL - will scale back on Lantus dosing. Patient received Lantus yesterday afternoon, plan to slowly move dose to AM time for ease in discharge transition (similar to time patient takes at home) - will dose again with lunch today * Continue same CF/CR PLAN FOR INPATIENT GLYCEMIC CONTROL: * Hold outpatient oral diabetes medications * Basal insulin * Lantus 22 units with lunch; adjust to AM time 05/11 * Bolus insulin * NovoLog per scale ACHS or Q6hrs while NPO * Goal Range: Low 110 mg/dL - High 140 mg/dL * Correction Factor: 35 mg/dL/unit * Nutritional / Prandial insulin per carb ratio of 1 unit per 12 grams CHO consumed PLAN FOR DISCHARGE: * A1c = 6.5% - indicates excellent glycemic control outpatient * Would recommend continuation of outpatient medications as long as patient not reporting any low BSGs at home
--- NOTE | 2019-05-11 11:43 | Medical Student Progress Note ---
Date of Service May 11, 2019 Assessment & Plan Treatment Plan Mr. 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 Vasovagal syncope: - CT scan ruled out an acute bleed at outside hospital. - He was standing up after finishing urinating when the episode occurred; therefore, likely vasovagal syncope. - Neuro feels this was likely a vasovagal or orthostatic event. Recommended UA and B12 to rule out other causes of confusion. UA showed increased WBC and leuk esterase; however, patient does not endorse dysuria, urgency, or frequency. B12 was within normal limits. - MRI was negative for mass or ischemic changes. - No further work-up or treatment required at this time. Mediastinal Lymphadenopathy: - Raises concern for recurrence of head and neck cancer. Per family, nodule in left apex has been followed by outside provider and thus does not merit further work-up. - Patient was seen by pulmonology on 05/09. Recommended holding clopidogrel for 5 days and repeating CXR and pleurocentesis as an outpatient to rule out malignancy. - Per patient's daughter, patient is following with a digital performance analyst at [facility]. Internal medicine team received contact info with this physician - will share records. - Dr. Whiting of heme/onc also saw the patient this morning (05/10) and he will follow with this patient in clinic. - Follow-up with pulmonology and heme/onc as an outpatient. Diabetes: - Blood glucose is consistently within range. - Continue home DMII meds as an outpatient. Grade III Diastolic Dysfunction: - Echo showed normal LV function, EF: 55%-60%, severe concentric LV hypertrophy, grade III diastolic dysfunction, increased left atrial pressure, cannot exclude aortic stenosis. - Unclear if this represents a new finding as we do not have any records to which to compare this. - Share records with patient's nurse extern; defer decision for f/u to them. Hypertension and CAD in the Setting of multiple MIs: - Blood pressure has been slightly high over the course of his hospital stay (140s/70s). He had two episodes of higher SBP (176, 166). - We were holding metoprolol, lisinopril, and amlodipine for permissive hypertension in the setting of possible CVA. - Given neuro consult, there is low concern for an ischemic event. - Patient has only been slightly hypertensive over the course of his stay even without his anti-hypertensives. - Given echo findings, there is concern for worsening CHF with amlodipine. - Continue clopidogrel, atorvastatin, and aspirin. - Restart metoprolol and lisinopril. - Discontinue amlodipine. Atrial Fibrillation: - Patient has not been taking medications to manage this condition for unclear reasons. - Regular rate and rhythm on exam today as well as on EKG yesterday; therefore, patient is not in a-fib at this time. - Unmanaged atrial fibrillation is a risk factor for clot formation and possible stroke. - Encourage patient to follow up with PCP/Cardiology as an outpatient. Dispo: D/C to home Code Status: DNR/DNI DVT Prophylaxis: Lovenox 40mg, SQ, daily Diet: Heart Healthy, Diabetic diet Subjective Mr. Carter did well overnight. He has been eating and ambulating well. He was able to move his bowels last night and has been urinating well. He does not endorse any additional episodes of dizziness, lightheadedness, weakness, or slurred speech. He also does not endorse any shortness of breath or chest pain. Review of Systems Review of Systems: All systems reviewed & are unremarkable except as noted in HPI & below Constitutional: no fatigue, no malaise, no weakness, no anorexia and no insomnia Eyes: + worsening vision (over the past few months; relates that he has cataracts and is being followed by ophthalmology); no diplopia Ear, Nose, Mouth, Throat: no problem reported Respiratory: no cough, no dyspnea and no pain on inspiration Cardiovascular: no chest pain, no dyspnea and no edema Gastrointestinal: no abdominal pain, no nausea, no vomiting, no cramping, no change in stools, no constipation and no diarrhea/loose stools Genitourinary: no problem reported Musculoskeletal: no muscle weakness Integumentary: no rash and no lesions Neurologic: no gait abnormality, no unsteadiness, no generalized weakness, no headache(s), no abnormal speech, no confusion and no memory loss Psychiatric: no problem reported Endocrine: no problem reported Hematologic / Lymphatic: no problem reported Allergy / Immunological: no problem reported Physical Exam Physical Exam: General Appearance: Patient is well-appearing and resting comfortably on exam. He is cooperative and in no acute distress. HEENT: Not examined. Neck: Not examined. Respiratory: Lungs clear bilaterally to auscultation. No rhonchi or wheezes. No increased work of breathing. Cardiovascular: Regular rate and rhythm. S1 and S2 appreciated. No rubs, murmurs, or gallops. No lower extremity edema appreciated. Gastrointestinal: Abdomen non-tender to palpation. No organomegaly. Normoactive bowel sounds. MSK: Normal range of motion. Skin: Not examined. Neurological: Alert and oriented x4. Motor and sensory function grossly intact. Psychiatric: Thought pattern logical and organized. Affect appropriate. Genitourinary: Not examined. Lymphatic: Not examined. Results & Data ([facility]) Vital Signs (Past 12 Hours) Vital Signs Temp Pulse Resp BP Pulse Ox 05/11/19 07:23 36.7 C 70 18 142/75 H 97 Laboratory Results Blood Glucose (Last 12 h): 91-97 Vitamin B12: 428 Urine Leukocyte Esterase: 3+ Urine WBC: >30 Diagnostic Findings Echo: Normal LV function, EF: 55%-60%, severe concentric LV hypertrophy, grade III diastolic dysfunction, increased left atrial pressure, cannot exclude aortic stenosis. ECG Additional Comments: Sinus rhythm with 1st degree A-V block; no significant changes when compared to ECG from May 2005
--- NOTE | 2019-05-11 11:46 | Discharge Summary ---
Date of Service May 11, 2019 Admission HPI Per Admitting Provider Yousif Carter is a 78 year old gentleman with a past medical history significant for 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 He presents today as a direct transfer from [facility] due to a syncopal episode that occurred at home. He went to the bathroom and when standing up got immediately light headed felt like his vision was narrowing, he became diaphoretic and nauseated and then lost consciousness and almost fell to floor. He does not recall the incident very well but his daughter was present and His daughter caught him before he fell but she feels he did completely lose consciousness. When he awoke shortly thereafter he was very confused and had slurred speech and trouble making any sense. He was stood back up and brought to [facility]. At [facility] he had returned to his baseline other than some left shoulder pain which had been present for the last several days. He did not have any new deficits that family could tell, he always have some degree of lower extremity weakness, ambulatory dysfunction and neuropathy left worse than right. They believe some of that is due to his spinal stenosis, some to his diabetes, and some to his previous stroke. In the ED he was speaking to a doctor when he began to acutely slur his words and not make sense again, this lasted several minutes then he returned completely back to his baseline. This cycled several times over their time in the ED and patient was urgently taken for CT head and CTA. CT head showed no acute infarct and no bleeding, CTA showing moderate stenosis of right coronary artery and extensive soft tissue in lower neck and mediastinum concerning for metastatic disease. Patient had normal vitals, labwork significant for mild anemia with hemoglobin of about 12, Liver function normal, renal function normal and a negative troponin. Patient was transferred to [facility] for further evaluation with MRI and neurology consultation. At time of my meeting he is awake alert and oriented to person place time and situation. He is in his usual state of health and says his strength and speech are at his baseline. He has not had an episode of slurred speech since arriving. His three daughter's are present at bedside and agree with his assessment. He was able to walk from the stretcher into the bed without much difficulty but with some dragging of left foot. Review of systems negative for current chest/shoulder pain, presyncope/lightheadedness, leg swelling, fever, chills, abomdinal pain, nausea vomiting, cough, shortness of breath, lower extremity wounds, or acute vision changes. He has all of his medications in a bag at bedside, of note he is not taking any anticoagulation for his atrial fibrillation and he is not taking any daily aspirin therapy. Admission Exam Per Admitting Provider Constitutional: well developed and well nourished; no acute distress and no altered mental status Port in place right upper chest Eyes: Pupils equal round and reactive to light, red injected sclera of left eye, ENMT: external ear and nose normal, oropharynx normal Neck: trachea midline, no thyromegaly Respiratory: normal respiratory effort, lungs clear to auscultation Cardiovascular: Rate/Rhythm: regular rate; + abnormal rhythm Heart Sounds: normal S1 and normal S2; no murmur and no cardiac rub Irregularly irregular rhythm, though patient was in sinus earlier Gastrointestinal (Abdomen): normal bowel sounds, soft, nontender, no hepatosplenomegaly Skin: no rashes, warm and dry Neurologic: CN II-XII assessed and normal, patient with symmetric lower extremity weakness, distal right foot inability to dorsiflex and plantar flex which patient tells me is a chronic issue. Sensation to light touch equal bilaterally Lymphatic: Lymphedema left arm Principal Diagnosis Syncope Discharge Exam Constitutional WD/WN, vitals as above cooperative Eyes + anicteric sclerae ENMT external ear and nose normal, oropharynx normal Neck normal visual inspection and trachea midline Respiratory normal respiratory effort, lungs clear to auscultation Cardiovascular Rate/Rhythm: regular rate and regular rhythm Heart Sounds: normal S1, normal S2 and + murmur (systolic ejection ) Extremities: no pedal edema + additional heart sounds Chest (Breasts) Additional Comments: + R sided chemo port in place Gastrointestinal (Abdomen) normal bowel sounds, soft, nontender, no hepatosplenomegaly Skin no rashes, warm and dry Neurologic CN's II-XI intact bilaterally and moves all extremities; no focal motor deficits Speech / Cognition: normal speech Motor/Sensory: no tremor and no pronator drift Psychiatric A+Ox3, euthymic affect Discharge Data Allergies Allergy/AdvReac Type Severity Reaction Status Date / Time No Known Allergies Allergy Unknown Verified 05/21/05 08:49 Consultations 05/10/19 00:41 Consult Neurology Routine 05/10/19 02:19 Consult Case Management - Discharge Planning Routine 05/10/19 14:03 Consult Pulmonology Routine 05/10/19 14:05 Consult Oncology Routine Ordered Studies 05/10/19 02:17 MR brain seizure wo/w con Routine 05/10/19 08:00 CT chest wo con Routine Hospital Course (1) Syncope and collapse: Mr. Carter is a medically complicated 78 yo gentleman who was a transfer to our facility from [facility] after a witnessed syncopal episode and subsequent episodes of slurred speech. Syncopal episode/Slurred Speech Patient had a syncopal episode after using the bathroom in his home, witnessed by his daughter. She called an ambulance which took him to [facility], where he had Head CT and CTA. The head CT was negative for acute bleed or stroke, but the CTA did show moderate stenosis of right carotid artery. Mr. Carter described a prodrome of lightheadedness, a sensation that his legs gave way, and reports a period of confusion following the syncope. Daughter provided history of upper extremity shaking for a short period of time after the syncope, although no bladder incontinence. By the time he arrived to our facility his symptoms resolved. Brain MRI at our facility showed no evidence of acute ischemic stoke or metastatic lesions. Patient's blood pressure typically ran 140s/70s, although at one point in the hospital he was hypotensive at 98/46. Orthostatic vitals we re obtained and negative. Neurology was consulted and felt the syncopal episode was consistent with hypotension vs. vasovagal vs. autonomic dysfunction (given his longstanding history of diabetes). Neurology recommended checking a vitamin B12, which was normal, as well as a UA, which was + for leuk esterase. Urine culture was obtained, pending at the time of discharge. No EEG was obtained. In the event blood pressure was the culprit, we have asked Mr. Carter to temporarily hold his home amlodipine 2.5mg daily. At the time of discharge, BP was 142/75. Outpatient items to do: Consider tilt table testing and 30 day becca monitoring for possible arrhythmia Mediastinal Lymphadenopathy / Pleural Effusion/ Left Lung Nodule Chest CT scan on admission showed enlarged mediastinal nodes, a moderate, right sided pleural effusion, and a left apical lung nodule measuring 13 mm. These findings were of concern given Mr. Carter's history of malignancy (SCC of head and neck and hairy cell leukemia). Pulmonology was consulted and recommended a thoracentesis, 5 days after holding plavix. Because Mr. Carter was taking plavix up to his admission, this non-emergent test was deferred to outpatient setting. Hospital care managers contacted Mr. Carter's typically thread marker, Dr. Mondragon at [facility] Pulmonology with records from this visit. It was recommend he have a repeat Chest CT for surveillance of his mediastinal LAD. Dr. Mondragon has followed the left lung nodule over the past several years, and he has told Mr. Carter "it is stable." Outpatient items to do: Patient needs referral to [facility] Pulmonology for thoracentesis and repeat Chest CT Chronic Diastolic Heart Failure A echocardiogram obtained during this hospital stay showed normal LV systolic function with an EF 55-60%, with severe concentric LVH and Grade III diastolic dysfunction. Mr. Carter has history of heart disease, for which he follows with Dr. Cruz at [facility]. Hospital care managers send a copy his echo to Dr. Cruz's office for review. Of note, patient was on metoprolol, lisinopril and amlodipine when admitted to the hospital. We recommended he d/c the amlodipine given his relative hypotension while in the hospital and syncopal episode. Outpatient items to do: consider need for restarting amlodipine History of SCC of Head and Neck s/p radial R lymph node dissection and Hairy Cell Leukemia Per family, patient has been in remission since 2005, and has not seen an oncologist since. Previously, he followed with Dr. Romo at [facility]. The above findings are concerning for possible malignant transformation. Oncology was consulted while he was in the hospital, and recommended outpatient follow up. Outpatient items to do: thoracentesis and surveillance CT as above Paroxysmal Atrial Fibrillation EKG on admission showed sinus rhythm with first degree AV aj block. Mr. Carter is on dual antiplatelet therapy, but NOT anticoagulated. The reason why he was never placed on anticoagulation is unclear. He has no obvious contraindications. [id number] score is 8. HAS-BLED score of 4. 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: (6) Squamous cell carcinoma: (7) Mediastinal lymphadenopathy: (8) Coronary artery disease: (9) Cerebrovascular disease: (10) Diastolic heart failure: (11) Pleural effusion, right: (12) Lung nodule: (13) Coronary artery disease: Total Time Total Time Spent Total Time Spent (In Minutes): see attending attestation Discharge Plan Discharge Items Patient Disposition: Home - Home Health Services Reason For Visit: STROKE LIKE SYMPTOMS Discharge Diagnosis: Syncope Activity: Resume your previous activity Non-emergency contact: Primary Care Provider, Hop Weigher and Cotton Presser Call non-emergency contact if: your symptoms worsen Follow-up/Referrals: Paulo Galeana [Primary Care Provider] - 05/17/19 1:00 pm Chris Lerner M.D. [Outside Practitioners] - 05/13/19 2:15 pm (Please, follow up with Dr. Lerner on May 12 at 2:15 pm. *The office is located at [address] [place] [address] in [place]. If you need to change this appointment, call the office at [phone].) Diet: Carb Consistent or DM2 and Heart Healthy Addtl Attending Provider Instructions: You were sent to [facility] from [facility] in [place] for evaluation of a syncopal episode, or "passing out," and for slurred speech. A Head CT done at [facility] ruled out a brain bleed, but did show evidence of a narrowed artery in the right side of your brain. Brain MRI obtained here showed no evidence of a new stroke, nor did it show any evidence of metastasis, or spread of your cancer to your brain. Neurology was consulted during your hospital stay who recommended checking you urine for infection and vitamin B12 level, both of which can cause neurologic symptoms. Your vitamin B12 level was normal, but your urine culture result did not come back by the time of discharge. You will be contacted over the phone if they are abnormal. It is possible you passed out because your blood pressure went too low. At times during your hospital stay, your BP was low. We recommend you continue to take your Metoprolol and Lisinopril as you had been before coming to the hospital. However, we recommend you discontinue your amlodipine medication. Please follow up with your primary care physician within one week. A cat scan of your chest was done, which showed enlarged lymph nodes - this is concerning for possible spread of cancer to your chest. The cat scan also showed lung at the base of your right lung. We recommend you see your [facility] thread marker to have this fluid sampled. It can then be analyzed to check for any cancerous cells. We also recommend you have a repeat cat scan of your chest to re-assess the enlarged lymph nodes (ie check if they get smaller or bigger). Your [facility] thread marker can you arrange this repeat cat scan. An Echocardiogram, or ultrasound of your heart was obtained, which showed normal pumping function. It showed abnormal growth of your heart muscle known as hypertrophy, in addition to abnormal relaxation of your heart. It is unknown as to whether these findings are new or chronic. We have sent the report of your echo to Dr. Cruz at [facility]. We recommend you contact his office and find out if he would like to see to follow up given your most recent echo results. Oncology was consulted during your hospital stay. We recommend you follow up as directed by Dr. Whiting for your known hairy cell leukemia. Pending Studies at Discharge: No Stand-Alone Forms: My [facility] ON24, Smoking Cessation Medications and DC Order Prescriptions: New prasugrel 10 mg tablet 10 mg PO DAILY Qty: 30 RF: 3 clopidogrel 75 mg Tablet 75 mg PO QAM 30 Days Qty: 30 RF: 0 Continued Gabapentin (Neurontin) 300 MG capsule 300 mg PO TID Qty: 0 RF: 0 Lisinopril (Prinivil) 5 MG tablet 5 mg PO QD@08 Qty: 0 RF: 0 Pravastatin (Pravachol ) 20 MG tablet 40 mg PO QD Qty: 0 RF: 0 ASPIRIN (ASPIRIN EC) 81 MG tablet 1 tab PO qd Qty: 0 RF: 0 CITALOPRAM HYDROBROMIDE (CELEXA) 10 MG tablet 10 mg PO DAILY Qty: 0 RF: 0 FERROUS SULFATE (FE TABS) 325 MG tablet 325 mg PO DAILY Qty: 0 RF: 0 LORAZEPAM 0.5 MG tablet PRN Qty: 0 RF: 0 METFORMIN HCL (GLUCOPHAGE) 500 MG tablet 500 mg PO DAILY Qty: 0 RF: 0 Pantoprazole (Protonix) 20 MG tablet 20 mg PO DAILY Qty: 30 RF: 0 TOLTERODINE TARTRATE (DETROL LA) 2 MG capsule 2 mg PO DAILY Qty: 0 RF: 0 vit b12 1xmonth Qty: 0 RF: 0 TRAVOPROST (TRAVATAN Z) 0.004 % JEB 1 drp OPB QD@08 Qty: 0 RF: 0 Rhopressa 0.02 % Drops 1 drp ophthalmic (eye) DAILY RF: 0 Vyzulta drops 1 drp ophthalmic (eye) DAILY RF: 0 brimonidine drops 1 drp ophthalmic (eye) BID RF: 0 dorzolamide-timolol 1 drp ophthalmic (eye) BID RF: 0 Lantus Solostar U-100 Insulin 100 unit/mL (3 mL) Insulin Pen 35 unit SUBCUT QAM RF: 0 Trulicity 0.75 mg/0.5 mL Pen Injector WK RF: 0 Discontinued Amlodipine (Norvasc) 2.5 MG tablet 2.5 mg PO DAILY Qty: 0 RF: 0 Discharge Orders: Discharge Order (Routine); Ordered 05/11/19 Ordered By: Dotty Soto Admission Data Admit Date/Time: 05/10/19 00:41 Attending Provider: Dilma Vyas Admit Provider: Jennifer Aaron Primary Care Provider: Paulo Galeana Other Providers: Jennifer Aaron ; Shalonda Fox ; Logan Marsh ; Ean Whiting V. Other Interventions: Discharge Summary Assessment (RN) Last Done: 05/11/19 12:16 DC Date/Time DO NOT enter until pt leaves facility: 05/11/19 12:50 Supervising Physician Co-Signing Physician Notes Resident Physician Supervision Note: I independently interviewed and examined the patient and verified the corrales history and physical, reviewed labs and image studies, discussed the case with t [place] resident Dr. Soto and agree with the findings and care plan. Resident Activity Tracking Resident Involvement: Resident Care Provided Care Provided: Adult Hospital Medicine
[2019-05-11] MEDS ORDERED: INSULIN GLARGINE SOLOSTAR 100 UNITS/ML 3 ML PEN SC ONE (12:30)
--- NOTE | 2019-05-11 13:39 | Consultation Report ---
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 HISTORY OF PRESENT ILLNESS: Mr. Carter is a very pleasant 78-year-old -Chinese gentleman who was admitted to our facility with a near syncopal episode. Specifically, he was going to bathroom, and upon standing, immediately felt lightheaded with his vision blacking out. He became diaphoretic and nauseated, lost consciousness as he almost fell to the floor, apparently his daughter was able to catch him before he actually struck the floor, but the daughter admits that she thought that there was a period of LOC. Upon arousal, he was quite confused, slurred speech with nonsensical conversation that followed. He was subsequently seen at [facility] and transferred to our facility for further workup. This gentleman has a remote history of hairy cell leukemia and squamous cell carcinoma of the head and neck, both of which were diagnosed and treated back in 2004. His last connection with [facility] was with Dr. Raleigh Romo who has long since retired. He has been following with ENT though, Dr. Santi Saucedo at [facility] in [place], undergoing occasional direct laryngoscopies and surveillance. The primary service has alerted me because of radiographic findings during this admission. MRI of the brain was done, which reveals extensive cerebellar as well as cerebral atrophy, extensive chronic small vessel change in the periventricular deep white matter regions as well as pontine medullary region. There is no evidence of intracerebral metastatic disease. Chest CT was also done, which shows nonspecific prominent mediastinal lymph nodes measuring up to a centimeter in short axis. Moderate right pleural effusion is also noted. A 13 mm ground-glass nodule of the left apex. Primary service is requesting consultation to evaluate Mr. Carter to see if there is any further workup necessary moving forward and perhaps reestablish oncologic followup care for his prior issues as stated above. PAST MEDICAL HISTORY: Positive for type 2 diabetes mellitus, glaucoma, squamous cell carcinoma of the head and neck, hairy cell leukemia, coronary artery disease. MEDICATIONS: Rhopressa 1 drop ophthalmic in the affected eye daily, dorzolamide 1 drop in the affected eye twice daily, brimonidine 1 drop in the affected eye b.i.d., Vyzulta 1 drop in the affected eye daily, and Travatan 1 drop in the affected eye daily. Vitamin B12 dose unknown, Detrol LA 2 mg p.o. daily, Pravachol 40 mg p.o. daily, Protonix 20 mg p.o. daily, metformin 500 mg p.o. daily, lisinopril 5 mg p.o. daily, lorazepam as needed, Humulin insulin dose unknown, Neurontin 300 mg p.o. t.i.d., ferrous sulfate 325 mg p.o. daily, citalopram 10 mg p.o. daily, Norvasc 2.5 mg p.o. daily, aspirin 81 mg p.o. daily. ALLERGIES: No known drug allergies. SOCIAL HISTORY: The patient is retired and lives with his sister. He stopped smoking in 2004 upon his cancer diagnosis. He does drink occasional alcohol. FAMILY HISTORY: Noncontributory. REVIEW OF SYSTEMS: CONSTITUTIONAL: Positive for syncopal episode. No fevers, chills or sweats. He is not anorexic or losing weight. HEENT: Negative for headaches, lightheadedness or dizziness at present. He did have these symptoms leading to the episode that brought him to hospital. Negative for sinus symptoms, sore throat or dysphagia. However, he has chronic xerostomia from previously treated head and neck cancer. LYMPHATICS: No history of lymphoproliferative disease. CARDIAC: Negative for angina or palpitations. PULMONARY: Negative for shortness of breath, dyspnea or orthopnea. No cough or hemoptysis. GASTROINTESTINAL: Negative for abdominal pain, nausea, vomiting, diarrhea or constipation, hematochezia or melena stools. GENITOURINARY: No hematuria, dysuria, or urinary incontinence. PSYCHIATRIC: Negative for anxiety, depression or psychoses. MUSCULOSKELETAL: No arthralgias or myalgias. ENDOCRINE: Positive for diabetes mellitus. NEUROLOGIC: Positive for near syncope. No previous strokes. Negative for migraine headache or previous seizure disorder. HEMATOLOGIC: Negative for anemia, thrombophilia or bleeding diathesis. PHYSICAL EXAMINATION: GENERAL: A very pleasant 78-year-old -Chinese gentleman in no acute distress. VITAL SIGNS: Temperature 36.7, pulse 70, respiratory rate 18, blood pressure 142/75. SKIN: Warm, dry, noncyanotic without petechia, rash or ecchymosis. HEENT: Head is atraumatic, normocephalic. Eyes: PERRLA, EOMI. Sclerae nonicteric. No conjunctival injection. Nares are patent without rhinorrhea or discharge. Throat clear. Tongue midline. Mucous membranes are dry. No buccal lesions or ulcerations otherwise. NECK: Somewhat firm. He was obviously treated to the left side of his neck; therefore, palpable rigidity. I could not appreciate any palpable masses or lymphadenopathy. HEART: Regular rate and rhythm. No clicks, rubs, murmurs or gallops. LUNGS: Clear to auscultation bilaterally. ABDOMEN: Soft, nontender, nondistended, without palpable hepatosplenomegaly. EXTREMITIES: No clubbing, cyanosis or edema. MUSCULOSKELETAL: Strength and pulses are equal in all 4 quadrants. NEUROLOGICAL: He is awake, alert and oriented x3. Cranial nerves II-XII are grossly intact. LABORATORY DATA: Data from yesterday, WBC count 5380, hemoglobin 12.6, platelet count 164,000, ANC 2630. Sodium 139, potassium 3.9, chloride 105, carbon dioxide 27, creatinine 0.83, BUN 20. Hemoglobin A1c 6.5. IMPRESSION: 1. Syncopal episode. 2. Rule out transient ischemic attack versus cerebrovascular accident. 3. Mediastinal lymphadenopathy. 4. Poorly controlled type 2 diabetes mellitus. 5. Remote history of hairy cell leukemia. PLAN: I have been asked to evaluate Mr. Carter's recent radiographic findings. To be honest, not terribly impressed with these findings. Lymph nodes are all about 1 cm in size. He has a small pleural effusion and perhaps a thoracentesis may be helpful with cytology to rule out occult neoplasia. Both the squamous cell carcinoma of the head and neck and hairy cell leukemia were diagnosed back in 2004. Mr. Carter follows closely with Dr. Santi Saucedo, ENT at [facility] in [place] and routinely undergoes a direct laryngoscopy examination, which includes biopsy when necessary. That said, Mr. Carter should reestablish followup with medical oncology for a routine physical exam and monitoring of his laboratories as well as radiographic surveillance moving forward. Again, I am not terribly impressed with the lymph nodes presently seen, but certainly would be open to repeating CT scan limited to the chest in about 2-3 months to determine interval growth. Generally speaking, lymph nodes below 1.5 cm are usually reactive. Other than his syncopal episode, there is no other glaring evidence that he is developing metastatic disease. I reviewed his peripheral blood counts. There is no evidence that hairy cell leukemia has reemerged. Thank you very much for allowing me to participate in his care. If you have specific questions or concerns, feel free to contact me by phone. Again, I would be more than happy to reengage with Mr. Carter as an outpatient. [facility]
--- NOTE | 2019-05-11 15:24 | Electrocardiogram Report ---
Test Reason : Blood Pressure : / mmHG Vent. Rate : 077 BPM Atrial Rate : 077 BPM P-R Int : 224 ms QRS Dur : 110 ms QT Int : 378 ms P-R-T Axes : 082 030 016 degrees QTc Int : 427 ms Sinus rhythm with 1st degree A-V block Otherwise normal ECG When compared with ECG of 28-MAY-2005 10:23, No significant change was found Confirmed by Filipe Palomares ([id number]) on 05/11/2019 3:23:38 PM Referred By: Jennifer Aaron Confirmed By:Filipe Palomares
--- OUTSIDE RECORDS SUMMARY | 2019-05-20 11:20 | External Medical Summary | Continuity of Care Document ---
:1940 Author Name Dorota Aguirre, Provider Address Unavailable Unavailable , Care Team Providers Name Role Phone Woody [email or web address] Kasandra Singh Unavailable [email or web address] LINO [email or web address] V Unavailable Unavailable Unavailable Unavailable Unavailable Problems Squamous cell carcinoma Stroke syndrome Gross hematuria (599.71) (R31.0) UTI (urinary tract infection) (599.0) (N39.0) Exhausted vascular access (459.89) (Z45.2) BPH (benign prostatic hyperplasia) (600.00) (N40.0) Elevated PSA (790.93) (R97.20) Mass, scrotum (608.89) (N50.89) Left groin pain (789.04) (R10.32) Hypertension (401.9) (I10) Hypercholesterolemia (272.0) (E78.00) Heart trouble (429.9) (I51.9) Glaucoma (365.9) (H40.9) Diabetes (250.00) (E11.9) Arthritis (716.90) (M19.90) Prostatic hypertrophy, benign, with obstruction (600.21) (N4 0.1) Prostatitis (601.9) (N41.9) Hematuria (599.70) (R31.9) Allergies and Adverse Reactions No Known Drug Allergies (Allergy) Medications metFORMIN HCl - 1000 MG Oral Tablet Refills: 0 Protonix 40 MG Oral Tablet Delayed Release Refills: 0 Gabapentin 600 MG Oral Tablet Refills: 0 Lisinopril 40 MG Oral Tablet Refills: 0 CeleXA 20 MG Oral Tablet Refills: 0 HumuLIN N Pen 100 UNIT/ML SUSP Refills: 0 Rapaflo 8 MG Oral Capsule; TAKE 1 CAPSULE DAILY WITH FOOD. HARPAL Chadwick Start: 20-Feb-2015 Quantity: 30 Refills: 6 Norvasc 10 MG Oral Tablet Refills: 0 LORazepam 0.5 MG Oral Tablet Refills: 0 Ferrous Sulfate 325 (65 Fe) MG Oral Tablet Start: 22-Apr-2016 Refills: 0 Detrol 2 MG Oral Tablet Start: 22-Apr-19 17 Refills: 0 Aspirin 325 MG Oral Tablet Start: Refills: 0 Procedures History of Back Surgery Status: Complete d History of Heart Surgery Status: Complet ed History of Foot Surgery Status: Complete d History of Ankle Surgery Status: Complet ed History of Hip Surgery Status: Completed History of Throat Surgery Status: Comple argenis History of Central IV Child Age 6 Or Older W/ Tunneling & Status: Completed Subcutan Port Immunizations Immunizations not documented Family History Mother Family history of hypertension (V17.49) (Z82.49) Status: Act ene Family history of diabetes mellitus (V18.0) (Z83.3) Status: Active Father Family history of diabetes mellitus (V18.0) (Z83.3) Status: Active Family history of cardiac disorder (V17.49) (Z82.49) Status: Active Brother Family history of malignant neoplasm (V16.9) (Z80.9) Status: Active Social History - Smoking Status Ex-smoker Plan of Treatment Planned Observations Planned Goals not documented Results No Known Results Results not documented Encounters Appointment; Woody Pepper M.D. 15-May-2016 13:20 Encounter Diagnosis: Problem not documented
== END 2019-05-11 12:50 | disposition home or self-care (01) | DRG 312 ==
LOC: 2S → OBSVTOIN 23:03 → SUATTDRO 05-10 00:41 → 4W 05-10 16:41